=== PATIENT | female | born 1990 | race African-American/Black ===

== ENCOUNTER → 2018-11-04 08:19 | Outpatient (CLI) | payer OTHER | END | disposition home or self-care (01) | LOC: D.RAD 08:19 | PROVIDERS: ATTEND Internal Medicine Gastroenterology | DX: R10.13 Epigastric pain (principal); R11.2 Nausea with vomiting, unspecified; K59.09 Other constipation ==

== ENCOUNTER → 2019-01-09 09:29 | Outpatient (CLI) | payer OTHER | END | disposition home or self-care (01) | LOC: D.CT 09:29 | PROVIDERS: ATTEND Internal Medicine Gastroenterology | DX: G12.9 Spinal muscular atrophy, unspecified (principal) ==